=== PATIENT | female | born 2000 | race Caucasian/White ===

== ENCOUNTER 2025-03-05 03:33 | Emergency (ER) | payer MEDICAID ==
[~2025-03-05] VITALS: Ht 157.5 cm; Wt 75.0 kg
[2025-03-05 03:50] VITALS: O2SAT 98
[2025-03-05] MEDS ORDERED: ACETAMINOPHEN 325MG TABLET PO ONE (04:00)
[2025-03-05] MEDS ORDERED: SODIUM CHLORIDE 0.9% 1,000 ML IV ONE (04:00)
[2025-03-05 04:58] LABS: BASOPHILS % 1.2 % (0.0-2.0); EOSINOPHILS % 0.7 % (0.0-5.0); HEMATOCRIT. 33.1 % (36.0-48.0); HEMOGLOBIN. 10.8 g/dL (12.0-16.0); LYMPHOCYTES % 19.7 % (20.0-50.0); MEAN CORPUSCULAR HEMOGLOBIN 26.5 pg (28.0-32.0); MEAN CORPUSCULAR HGB CONC 32.6 g/dL (31.0-37.0); MEAN CORPUSCULAR VOLUME 81.3 fL (81.0-99.0); MEAN PLATELET VOLUME 8.8 fl (7.4-10.4); MONOCYTES % 7.6 % (2.0-8.0); NEUTROPHILS % 70.8 % (40.0-76.0); PLATELET 229 x1000/uL (130-400); RED BLOOD CELL COUNT 4.07 mill/uL (4.2-5.4); RED CELL DISTRIBUTION WIDTH 14.4 % (11.6-14.6)
[2025-03-05 05:06] LABS: CHLORIDE 109 mEq/L (98-107); SODIUM 140 mEq/L (136-145)
[2025-03-05 05:07] LABS: CARBON DIOXIDE 27 mEq/L (21-32)
[2025-03-05 05:08] LABS: CALCIUM 8.8 mg/dL (8.7-10.4)
[2025-03-05 05:12] LABS: CREATININE 0.7 mg/dL (0.6-1.0); GLUCOSE 104 mg/dL (70-105)
[2025-03-05 05:13] LABS: UREA NITROGEN BLOOD 13 mg/dL (9-23)
[2025-03-05 05:20] LABS: B-HCG QUANTITATIVE 1 mIU/mL (<6)
[2025-03-05] MEDS ORDERED: ACET-2708 MT (06:24)
[2025-03-05 06:37] VITALS: BP 106/86; PULSE 86; RESP 16; TEMP 36.5; O2SAT 98
== END 2025-03-05 06:47 ==
LOC: ER 03:33
DX: N93.9 Abnormal uterine and vaginal bleeding, unspecified (principal); F17.200 Nicotine dependence, unspecified, uncomplicated; F12.10 Cannabis abuse, uncomplicated; F15.10 Other stimulant abuse, uncomplicated; Z02.89 Encounter for other administrative examinations; Y04.0XXA Assault by unarmed brawl or fight, initial encounter; Y93.89 Activity, other specified; Y92.89 Other specified places as the place of occurrence of the external cause; Y99.8 Other external cause status
CPT/HCPCS: 99284; 76830; 76856; 80048; 84702; 85025; 86850; 86900; 86901; 36415; J7030